=== PATIENT | female | born 1990 | race Caucasian/White ===

== ENCOUNTER 2016-09-16 04:40 | Emergency (ER) | payer OTHER ==
[2016-09-16] MEDS ORDERED: diphenhydrAMINE INJ 50MG/ML VIAL (J1200) As Ordered ONE (05:53)
[2016-09-16] MEDS ORDERED: METOCLOPRAMIDE INJ 10MG/2ML VIAL (J2765) As Ordered ONE (05:53)
[2016-09-16] MEDS ORDERED: KETOROLAC 30 MG/ML VIAL (J1885) As Ordered ONE (05:54)
--- NOTE | 2016-09-16 06:57 | EDDOCDS ---
Nurse's Notes [facility] Name: Kate Snyder Age: 26 yrs Sex: Female : 1990 Arrival Date: 09/16/2016 Time: 04:40 Bed 11 Private MD: Diagnosis: Migraine without aura, not intractable Presentation: 09/16 04:58 Presenting complaint: Patient states: she has a migraine that started about 3 hours ago cz nausea and vomiting headache like her usual migraines. Adult Sepsis Screening: The patient does not have new or worsening altered mentation. Patient's respiratory rate is less than 22. Systolic blood pressure is greater than 100. Patient has a qSOFA score of 0- Negative Sepsis Screen. Suicide/Homicide risk assessment- the patient denies having any suicidal and/or homicidal ideations and does not present with any other emotional, behavioral or mental health complaints. Status: Patient is not a associate director career services or dependent. Transition of care: patient was not received from another setting of care. 04:58 Acuity: JERED Level 3 cz 04:58 Method Of Arrival: Walkin/Carried/Asstd cz Triage Assessment: 05:03 General: Appears uncomfortable. Pain: Location: face Pain currently is 8 out of 10 on a cz pain scale. HIV screening NA for this visit Offered previously. 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 none - PMHx: Migraine Headaches; - PSHx: none; - Social history: Smoking status: Patient uses tobacco products, light tobacco smoker. No barriers to communication noted, The patient speaks fluent Estonian, Speaks appropriately for age. - Family history: Not pertinent. - : The pt / caregiver states he / she is not on anticoagulants. Home medication list is obtained from the patient. - Exposure Risk Screening:: None identified. Screenin:19 Screening information is obtained from the patient. Fall risk: No risks identified. mlc Assistance ADL's: requires no assistance with activities of daily living. Abuse/DV Screen: The patient / caregiver reports he/she is: not in a situation that causes fear, pain or injury. Nutritional screening: No deficits noted. Advance Directives: Currently, there is no health care proxy. There is no Power of Communications Systems Engineer. home support is adequate. Assessment: 05:19 General: Appears in no apparent distress, comfortable, Behavior is appropriate for age, mlc cooperative. Pain: Location: left frontal area, left side of the back of head, left side of forehead, left temporal area, left occipital area, left muslim and left base of the skull Pain currently is 8 out of 10 on a pain scale. Neurological: Level of Consciousness is awake, alert, obeys commands, Oriented to person, place, time, Denies blurred vision Reports headache photophobia. Respiratory: Airway is patent Respiratory effort is even, unlabored, Respiratory pattern is regular. GI: Abdomen is non- distended Reports nausea. Derm: Skin is normal. 06:08 Reassessment: Patient appears in no apparent distress at this time. Patient states mlc symptoms have not improved. pt medicated per order. 06:32 Reassessment: Patient appears in no apparent distress at this time. Patient states mlc feeling better. Patient states symptoms have improved. pain decreased to 3/10. resp easy/unlabored. . 06:54 General: Appears in no apparent distress, comfortable, Behavior is cooperative. Pain: mlc Pain currently is 3 out of 10 on a pain scale. Neurological: Level of Consciousness is awake, alert, Oriented to person, place, time. Respiratory: Airway is patent Respiratory effort is even, unlabored, Respiratory pattern is regular. Derm: Skin is normal. Vital Signs: 05:03 BP 130 / 67; Pulse 87; Resp 16; Temp 97.5(T); Pulse Ox 97% on R/A; Weight 72.57 kg; cz Height 5 ft. 2 in. (157.48 cm); 06:54 BP 119 / 56; Pulse 86; Resp 18; Temp 98.1; Pulse Ox 98% ; Pain 3/10; mlc 05:03 Body Mass Index 29.26 (72.57 kg, 157.48 cm) Vitals: 05:03 Log In Time: September 16, 2016 at 04:42. ED Course: 04:41 Patient visited by Jane Miller, Reg. hs2 04:41 Patient moved to [facility] hs2 05:02 Triage Initiated 05:05 Ila BeattyRN is Primary Nurse. 05:05 Patient moved to [facility] 05:19 Patient name changed from Kate\S\Patrick\S\Claudio\S\ to Kate\S\Kelly\S\Claudio. EDMS 05:21 Patient visited by Ila Beatty RN. mlc 05:21 [facility] Payment Agreement was scanned into [employer] and attached to record. [facility] 05:39 Adalberto Chang DO is Attending Physician. mm11 05:39 Patient visited by Adalberto Chang DO. mm11 05:46 Patient visited by Adalberto Chang DO. mm11 06:03 Inserted saline lock: 20 gauge in left forearm The patient tolerated the procedure well.rw1 06:08 Patient visited by Ila Beatty RN. mlc 06:32 Patient visited by Ila Beatty RN. mlc 06:54 The patient / caregiver is instructed regarding the plan of care and ED course. mlc 06:54 Discontinued IV lock intact, bleeding controlled, pressure dressing applied, No mlc redness/swelling at site. No procedures done that require assistance. Administered Medications: 06:07 Drug: diphenhydrAMINE 25 mg [diphenhydramine 50 mg/mL injection solution (0.5 mL)] mlc Route: IVP; Site: left antecubital; 06:31 Follow up: Response: No Adverse Reaction mlc 06:07 Drug: NS 0.9% 1000 ml [sodium chloride 0.9 % intravenous solution] Route: IV; Rate: mlc bolus; Site: left antecubital; 06:08 Drug: ketorolac 30 mg [ketorolac 30 mg/mL (1 mL) injection solution (1 mL)] Route: IVP; mlc Site: left antecubital; 06:31 Follow up: Response: Pain is decreased mlc 06:08 Drug: Metoclopramide 10 mg [metoclopramide 5 mg/mL injection solution] Route: IV; Rate: mlc 40 mg/hr; Infused Over: 15 mins; Site: left antecubital; 06:32 Follow up: Response: No Adverse Reaction; Pain is decreased; IV Status: Completed mlc infusion Order Results: There are currently no results for this order. Outcome: 06:46 Discharge ordered by Provider. mm11 06:54 Discharge Assessment: Patient awake, alert and oriented x 3. No cognitive and/or mlc functional deficits noted. Patient verbalized understanding of disposition instructions. patient administered narcotics - no. The following High Risk Discharge criteria are identified: None. Discharged to home ambulatory, with family. Condition: good Condition: stable. Discharge instructions given to patient, Instructed on discharge instructions, follow up and referral plans. Demonstrated understanding of instructions, Pt was receptive of discharge instructions/ teaching. No special radiology studies were completed. Property sent home with patient. 06:56 Patient left the ED. [facility] Signatures: Dispatcher [employer] EDAngel Jacobs RN RN cz Workman, Robert, LPN LPN rw1 Adalberto Chang, DO mm11 Ila Beatty RN RN mlc Hook, Sandra slh Stanton, Hillary, Reg Reg hs2 PATRICK
--- NOTE | 2016-09-16 06:57 | EDDOCDS ---
Physician Documentation [facility] Name: Kate Snyder Age: 26 yrs Sex: Female : 1990 Arrival Date: 09/16/2016 Time: 04:40 Bed 11 Private MD: Disposition: 09/16/16 06:46 Discharged to Home/Self Care. Impression: Migraine without aura, not intractable. - Condition is Stable. - Discharge Instructions: Migraine Headache. - Medication Reconciliation, Local Pharmacy Hours form. - Follow up: Private Physician; When: As needed; Reason: Continuance of care. - Problem is an acute exacerbation. - Symptoms have improved. Historical: - Allergies: Topamax; - Home Meds: 1. none - PMHx: Migraine Headaches; - PSHx: none; - Social history: Smoking status: Patient uses tobacco products, light tobacco smoker. No barriers to communication noted, The patient speaks fluent Uzbek, Speaks appropriately for age. - Family history: Not pertinent. - : The pt / caregiver states he / she is not on anticoagulants. Home medication list is obtained from the patient. - Exposure Risk Screening:: None identified. 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 2 in. (157.48 cm); 06:54 BP 119 / 56; Pulse 86; Resp 18; Temp 98.1; Pulse Ox 98% ; Pain 3/10; mlc 05:03 Body Mass Index 29.26 (72.57 kg, 157.48 cm) cz MDM: 05:21 [facility] Payment Agreement was scanned into [employer] and attached to record. [facility] [address] 05:47 IV Saline Lock ordered. mm11 05:47 ketorolac 30 mg IVP once ordered. mm11 05:47 Metoclopramide 10 mg IV at 40 mg/hr once over 15 mins ordered. mm11 05:47 diphenhydrAMINE 25 mg IVP once ordered. mm11 05:47 NS 0.9% 1000 ml IV at bolus once ordered. mm11 06:03 Financial registration complete. hs2 Administered Medications: 06:07 Drug: diphenhydrAMINE 25 mg [diphenhydramine 50 mg/mL injection solution (0.5 mL)] mlc Route: IVP; Site: left antecubital; 06:31 Follow up: Response: No Adverse Reaction [facility] 06:07 Drug: NS 0.9% 1000 ml [sodium chloride 0.9 % intravenous solution] Route: IV; Rate: mlc bolus; Site: left antecubital; 06:08 Drug: ketorolac 30 mg [ketorolac 30 mg/mL (1 mL) injection solution (1 mL)] Route: IVP; mlc Site: left antecubital; 06:31 Follow up: Response: Pain is decreased mlc 06:08 Drug: Metoclopramide 10 mg [metoclopramide 5 mg/mL injection solution] Route: IV; Rate: mlc 40 mg/hr; Infused Over: 15 mins; Site: left antecubital; 06:32 Follow up: Response: No Adverse Reaction; Pain is decreased; IV Status: Completed mlc infusion Signatures: Angel Christianson RN RN cz Maynard, Matthew, DO DO mm11 Ila Beatty RN RN mlc Hook, Sandra [facility] [address] Jane Miller, Reg Reg hs2 The chart was reviewed and I authenticate all verbal orders and agree with the evaluation and treatment provided.Attachments: 05:21 [facility] Payment Agreement [facility] [address] MTDD
--- NOTE | 2016-09-18 07:56 | EDDOCDS ---
Physician Documentation [facility] Name: Kate Snyder Age: 26 yrs Sex: Female : 1990 Arrival Date: 09/16/2016 Time: 04:40 Bed 11 Private MD: Disposition: 09/16/16 06:46 Discharged to Home/Self Care. Impression: Migraine without aura, not intractable. - Condition is Stable. - Discharge Instructions: Migraine Headache. - Medication Reconciliation, Local Pharmacy Hours form. - Follow up: Private Physician; When: As needed; Reason: Continuance of care. - Problem is an acute exacerbation. - Symptoms have improved. Historical: - Allergies: Topamax; - Home Meds: 1. none - PMHx: Migraine Headaches; - PSHx: none; - Social history: Smoking status: Patient uses tobacco products, light tobacco smoker. No barriers to communication noted, The patient speaks fluent Hebrew, Speaks appropriately for age. - Family history: Not pertinent. - : The pt / caregiver states he / she is not on anticoagulants. Home medication list is obtained from the patient. - Exposure Risk Screening:: None identified. 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 2 in. (157.48 cm); 06:54 BP 119 / 56; Pulse 86; Resp 18; Temp 98.1; Pulse Ox 98% ; Pain 3/10; mlc 05:03 Body Mass Index 29.26 (72.57 kg, 157.48 cm) cz MDM: 05:21 [facility] Payment Agreement was scanned into [employer] and attached to record. h 05:47 IV Saline Lock ordered. mm11 05:47 ketorolac 30 mg IVP once ordered. mm11 05:47 Metoclopramide 10 mg IV at 40 mg/hr once over 15 mins ordered. mm11 05:47 diphenhydrAMINE 25 mg IVP once ordered. mm11 05:47 NS 0.9% 1000 ml IV at bolus once ordered. mm11 06:03 Financial registration complete. hs2 11:50 T-Sheet-- Draft Copy was scanned into [employer] and attached to record. gb Administered Medications: 06:07 Drug: diphenhydrAMINE 25 mg [diphenhydramine 50 mg/mL injection solution (0.5 mL)] [facility] Route: IVP; Site: left antecubital; 06:31 Follow up: Response: No Adverse Reaction [facility] 06:07 Drug: NS 0.9% 1000 ml [sodium chloride 0.9 % intravenous solution] Route: IV; Rate: mlc bolus; Site: left antecubital; 06:08 Drug: ketorolac 30 mg [ketorolac 30 mg/mL (1 mL) injection solution (1 mL)] Route: IVP; mlc Site: left antecubital; 06:31 Follow up: Response: Pain is decreased [facility] 06:08 Drug: Metoclopramide 10 mg [metoclopramide 5 mg/mL injection solution] Route: IV; Rate: mlc 40 mg/hr; Infused Over: 15 mins; Site: left antecubital; 06:32 Follow up: Response: No Adverse Reaction; Pain is decreased; IV Status: Completed [facility] infusion Signatures: Angel Christianson, RN KALEY Orly Wilkerson, Reg Reg gb Adalberto Chang, DO DO mm11 Ila Beatty RN RN [facility] Lorena Rocha [facility] Jane Miller, Reg Reg hs2 The chart was reviewed and I authenticate all verbal orders and agree with the evaluation and treatment provided.Attachments: 05:21 [facility] Payment Agreement [facility] 11:50 T-Sheet-- Draft Copy Chart Complete MTDD
--- NOTE | 2016-09-18 07:56 | EDDOCDS ---
Physician Documentation [facility] Name: Kate Snyder Age: 26 yrs Sex: Female : 1990 Arrival Date: 09/16/2016 Time: 04:40 Bed 11 Private MD: Disposition: 09/16/16 06:46 Discharged to Home/Self Care. Impression: Migraine without aura, not intractable. - Condition is Stable. - Discharge Instructions: Migraine Headache. - Medication Reconciliation, Local Pharmacy Hours form. - Follow up: Private Physician; When: As needed; Reason: Continuance of care. - Problem is an acute exacerbation. - Symptoms have improved. Historical: - Allergies: Topamax; - Home Meds: 1. none - PMHx: Migraine Headaches; - PSHx: none; - Social history: Smoking status: Patient uses tobacco products, light tobacco smoker. No barriers to communication noted, The patient speaks fluent Korean, Speaks appropriately for age. - Family history: Not pertinent. - : The pt / caregiver states he / she is not on anticoagulants. Home medication list is obtained from the patient. - Exposure Risk Screening:: None identified. 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 2 in. (157.48 cm); 06:54 BP 119 / 56; Pulse 86; Resp 18; Temp 98.1; Pulse Ox 98% ; Pain 3/10; mlc 05:03 Body Mass Index 29.26 (72.57 kg, 157.48 cm) cz MDM: 05:21 [facility] Payment Agreement was scanned into [employer] and attached to record. h 05:47 IV Saline Lock ordered. mm11 05:47 ketorolac 30 mg IVP once ordered. mm11 05:47 Metoclopramide 10 mg IV at 40 mg/hr once over 15 mins ordered. mm11 05:47 diphenhydrAMINE 25 mg IVP once ordered. mm11 05:47 NS 0.9% 1000 ml IV at bolus once ordered. mm11 06:03 Financial registration complete. hs2 11:50 T-Sheet-- Draft Copy was scanned into [employer] and attached to record. gb Administered Medications: 06:07 Drug: diphenhydrAMINE 25 mg [diphenhydramine 50 mg/mL injection solution (0.5 mL)] [facility] Route: IVP; Site: left antecubital; 06:31 Follow up: Response: No Adverse Reaction [facility] 06:07 Drug: NS 0.9% 1000 ml [sodium chloride 0.9 % intravenous solution] Route: IV; Rate: mlc bolus; Site: left antecubital; 06:08 Drug: ketorolac 30 mg [ketorolac 30 mg/mL (1 mL) injection solution (1 mL)] Route: IVP; mlc Site: left antecubital; 06:31 Follow up: Response: Pain is decreased [facility] 06:08 Drug: Metoclopramide 10 mg [metoclopramide 5 mg/mL injection solution] Route: IV; Rate: mlc 40 mg/hr; Infused Over: 15 mins; Site: left antecubital; 06:32 Follow up: Response: No Adverse Reaction; Pain is decreased; IV Status: Completed [facility] infusion Signatures: Angel Christianson, RN KALEY Orly Wilkerson, Reg Reg gb Adalberto Chang, DO DO mm11 Ila Beatty RN RN [facility] Lorena Rocha [facility] Jane Miller, Reg Reg hs2 The chart was reviewed and I authenticate all verbal orders and agree with the evaluation and treatment provided.Attachments: 05:21 [facility] Payment Agreement [facility] 11:50 T-Sheet-- Draft Copy Chart Complete MTDD
--- NOTE | 2016-09-18 07:56 | EDDOCDS ---
Nurse's Notes [facility] Name: Kate Snyder Age: 26 yrs Sex: Female : 1990 Arrival Date: 09/16/2016 Time: 04:40 Bed 11 Private MD: Diagnosis: Migraine without aura, not intractable Presentation: 09/16 04:58 Presenting complaint: Patient states: she has a migraine that started about 3 hours ago cz nausea and vomiting headache like her usual migraines. Adult Sepsis Screening: The patient does not have new or worsening altered mentation. Patient's respiratory rate is less than 22. Systolic blood pressure is greater than 100. Patient has a qSOFA score of 0- Negative Sepsis Screen. Suicide/Homicide risk assessment- the patient denies having any suicidal and/or homicidal ideations and does not present with any other emotional, behavioral or mental health complaints. Status: Patient is not a relocation services specialist or dependent. Transition of care: patient was not received from another setting of care. 04:58 Acuity: JERED Level 3 cz 04:58 Method Of Arrival: Walkin/Carried/Asstd cz Triage Assessment: 05:03 General: Appears uncomfortable. Pain: Location: face Pain currently is 8 out of 10 on a cz pain scale. HIV screening NA for this visit Offered previously. 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 none - PMHx: Migraine Headaches; - PSHx: none; - Social history: Smoking status: Patient uses tobacco products, light tobacco smoker. No barriers to communication noted, The patient speaks fluent Cuban, Speaks appropriately for age. - Family history: Not pertinent. - : The pt / caregiver states he / she is not on anticoagulants. Home medication list is obtained from the patient. - Exposure Risk Screening:: None identified. Screenin:19 Screening information is obtained from the patient. Fall risk: No risks identified. mlc Assistance ADL's: requires no assistance with activities of daily living. Abuse/DV Screen: The patient / caregiver reports he/she is: not in a situation that causes fear, pain or injury. Nutritional screening: No deficits noted. Advance Directives: Currently, there is no health care proxy. There is no Power of Marketing Regional Consultant. home support is adequate. Assessment: 05:19 General: Appears in no apparent distress, comfortable, Behavior is appropriate for age, mlc cooperative. Pain: Location: left frontal area, left side of the back of head, left side of forehead, left temporal area, left occipital area, left zoroastrian and left base of the skull Pain currently is 8 out of 10 on a pain scale. Neurological: Level of Consciousness is awake, alert, obeys commands, Oriented to person, place, time, Denies blurred vision Reports headache photophobia. Respiratory: Airway is patent Respiratory effort is even, unlabored, Respiratory pattern is regular. GI: Abdomen is non- distended Reports nausea. Derm: Skin is normal. 06:08 Reassessment: Patient appears in no apparent distress at this time. Patient states mlc symptoms have not improved. pt medicated per order. 06:32 Reassessment: Patient appears in no apparent distress at this time. Patient states mlc feeling better. Patient states symptoms have improved. pain decreased to 3/10. resp easy/unlabored. . 06:54 General: Appears in no apparent distress, comfortable, Behavior is cooperative. Pain: mlc Pain currently is 3 out of 10 on a pain scale. Neurological: Level of Consciousness is awake, alert, Oriented to person, place, time. Respiratory: Airway is patent Respiratory effort is even, unlabored, Respiratory pattern is regular. Derm: Skin is normal. Vital Signs: 05:03 BP 130 / 67; Pulse 87; Resp 16; Temp 97.5(T); Pulse Ox 97% on R/A; Weight 72.57 kg; cz Height 5 ft. 2 in. (157.48 cm); 06:54 BP 119 / 56; Pulse 86; Resp 18; Temp 98.1; Pulse Ox 98% ; Pain 3/10; mlc 05:03 Body Mass Index 29.26 (72.57 kg, 157.48 cm) Vitals: 05:03 Log In Time: September 16, 2016 at 04:42. ED Course: 04:41 Patient visited by Jane Miller, Reg. hs2 04:41 Patient moved to [facility] hs2 05:02 Triage Initiated 05:05 Ila BeattyRN is Primary Nurse. 05:05 Patient moved to [facility] 05:19 Patient name changed from Kate\S\Patrick\S\Claudio\S\ to Kate\S\Kelly\S\Claudio. EDMS 05:21 Patient visited by Ila Beatty RN. mlc 05:21 [facility] Payment Agreement was scanned into [employer] and attached to record. [facility] 05:39 Adalberto Chang DO is Attending Physician. mm11 05:39 Patient visited by Adalberto Chang DO. mm11 05:46 Patient visited by Adalberto Chang DO. mm11 06:03 Inserted saline lock: 20 gauge in left forearm The patient tolerated the procedure well.rw1 06:08 Patient visited by Ila Beatty RN. mlc 06:32 Patient visited by Ila Beatty RN. mlc 06:54 The patient / caregiver is instructed regarding the plan of care and ED course. mlc 06:54 Discontinued IV lock intact, bleeding controlled, pressure dressing applied, No mlc redness/swelling at site. No procedures done that require assistance. 11:50 T-Sheet-- Draft Copy was scanned into [employer] and attached to record. gb Administered Medications: 06:07 Drug: diphenhydrAMINE 25 mg [diphenhydramine 50 mg/mL injection solution (0.5 mL)] mlc Route: IVP; Site: left antecubital; 06:31 Follow up: Response: No Adverse Reaction [facility] 06:07 Drug: NS 0.9% 1000 ml [sodium chloride 0.9 % intravenous solution] Route: IV; Rate: mlc bolus; Site: left antecubital; 06:08 Drug: ketorolac 30 mg [ketorolac 30 mg/mL (1 mL) injection solution (1 mL)] Route: IVP; mlc Site: left antecubital; 06:31 Follow up: Response: Pain is decreased mlc 06:08 Drug: Metoclopramide 10 mg [metoclopramide 5 mg/mL injection solution] Route: IV; Rate: mlc 40 mg/hr; Infused Over: 15 mins; Site: left antecubital; 06:32 Follow up: Response: No Adverse Reaction; Pain is decreased; IV Status: Completed mlc infusion Order Results: There are currently no results for this order. Outcome: 06:46 Discharge ordered by Provider. mm11 06:54 Discharge Assessment: Patient awake, alert and oriented x 3. No cognitive and/or mlc functional deficits noted. Patient verbalized understanding of disposition instructions. patient administered narcotics - no. The following High Risk Discharge criteria are identified: None. Discharged to home ambulatory, with family. Condition: good Condition: stable. Discharge instructions given to patient, Instructed on discharge instructions, follow up and referral plans. Demonstrated understanding of instructions, Pt was receptive of discharge instructions/ teaching. No special radiology studies were completed. Property sent home with patient. 06:56 Patient left the ED. [facility] Signatures: Dispatcher [employer] EDAngel Jacobs, KALEY RN Orly Wilkerson, Reg Reg gb Vic Colon LPN PIPELINES SUPERINTENDENT rw1 Adalberto Chang, DO mm11 Ila Beatty RN RN [facility] Lorena Rocha Hillary, Reg Reg hs2 Chart [address] [facility] [facility]
== END 2016-09-16 06:56 | disposition home or self-care (01) ==
LOC: M ED 04:40
DX: G43.909 Migraine, unspecified, not intractable, without status migrainosus (principal); Z88.8 Allergy status to other drugs, medicaments and biological substances; F17.210 Nicotine dependence, cigarettes, uncomplicated
CPT/HCPCS: 96365; 96375; 99283; J1200; J1885; J2765

== ENCOUNTER 2017-04-10 17:50 | Emergency (ER) | payer OTHER ==
[~2017-04-10] VITALS: Ht 157.5 cm; Wt 89.7 kg
[2017-04-10] MEDS ORDERED: diphenhydrAMINE INJ 50MG/ML VIAL (J1200) IV ONE (18:45)
[2017-04-10] MEDS ORDERED: KETOROLAC 30 MG/ML VIAL (J1885) IV ONE (18:45)
[2017-04-10] MEDS ORDERED: METOCLOPRAMIDE INJ 10MG/2ML VIAL (J2765) IV ONE (18:45)
--- NOTE | 2017-04-10 18:58 | REP ---
Clinical: Migraine headaches . Comparison: None. Findings: The ventricles, sulci, and cisterns are normal in position and appearance. Piña-white differentiation is maintained. No acute intracranial hemorrhage, mass/mass effect, pathology or trauma/injury. No evidence for acute infarction. No extra-axial fluid collection. Calvarium is intact. Paranasal sinuses and mastoid air cells are clear. Impression: Normal noncontrast head CT. No evidence for acute intracranial pathology or trauma/injury. Signed by Ilia Matson MD 04/10/2017 06:49 P
[2017-04-10 19:37] VITALS: BP 133/76
== END 2017-04-10 19:42 | disposition home or self-care (01) ==
LOC: M ED 17:50
DX: G43.909 Migraine, unspecified, not intractable, without status migrainosus (principal); Z72.0 Tobacco use
CPT/HCPCS: 70450; 96374; 96375; 99283; J1200; J1885; J2765

== ENCOUNTER 2017-09-05 17:37 | Emergency (ER) | payer OTHER | END 2017-09-05 21:31 | disposition left against medical advice (07) | LOC: M ED 21:31 | DX: Z53.29 Procedure and treatment not carried out because of patient's decision for other reasons (principal) ==

== ENCOUNTER → 2018-03-22 | Outpatient (REF) | payer OTHER ==
[2018-03-22 21:37] LABS: APPEARANCE, URINE CLOUDY (CLEAR); BACTERIA, URINE AUTO NEGATIVE (NEGATIVE); BILIRUBIN, URINE AUTO NEGATIVE (NEGATIVE); BLOOD, URINE BLOOD 2+ (NEGATIVE); COLOR, URINE YELLOW (YELLOW); GLUCOSE, URINE (UA) AUTO NEGATIVE (NEGATIVE); KETONE, URINE AUTO NEGATIVE (NEGATIVE); LEUKOCYTE ESTERASE, URINE AUTO 3+ (NEGATIVE); MUCUS, URINE SMALL (NEGATIVE); NITRITE, URINE AUTO NEGATIVE (NEGATIVE); PROTEIN, URINE AUTO 2+ mg/dL (NEGATIVE); RBC, URINE AUTO 51 /HPF (0-3); SPECIFIC GRAVITY URINE AUTO 1.027 (1.002-1.035); SQUAMOUS EPITHELIAL CELL UR AU 8 /HPF (0-6); TRANSITIONAL EPITHELIAL AUTO <1 /HPF; UROBILINOGEN, URINE AUTO 0.2 mg/dL (0.0-2.0); WBC, URINE AUTO TNTC /HPF (0-3)
== END ==
LOC: M LAB REF 09:50
DX: N39.0 Urinary tract infection, site not specified (principal)

== ENCOUNTER 2019-01-26 15:04 | Emergency (ER) | payer OTHER ==
[~2019-01-26] VITALS: Ht 157.5 cm; Wt 65.5 kg
[~2019-01-26 15:04] MED LIST: IBUP-1114 PO
[2019-01-26 16:26] LABS: HCG, SERUM QUALITATIVE NEGATIVE (NEGATIVE)
[2019-01-26] MEDS ORDERED: ACETAMINOPHEN 325 MG TAB PO ONE (17:00)
[2019-01-26] MEDS ORDERED: AZITHROMYCIN 250 MG TAB PO ONE (17:00)
[2019-01-26] MEDS ORDERED: LIDOCAINE 1% SDV 5 ML VIAL DILUENT ONE (17:00)
[2019-01-26] MEDS ORDERED: cefTRIAXone SOD 250 MG VIAL (J0696) IM ONE (17:00)
[2019-01-26 17:10] VITALS: BP 118/70
[2019-01-26 17:44] LABS: CHLAMYDIA DNA AMPLIFICATION NEGATIVE (NEGATIVE); GC DNA AMPLIFICATION NEGATIVE (NEGATIVE)
== END 2019-01-26 17:16 | disposition home or self-care (01) ==
LOC: M ED 15:04
DX: N72 Inflammatory disease of cervix uteri (principal); Z97.5 Presence of (intrauterine) contraceptive device; Z88.8 Allergy status to other drugs, medicaments and biological substances; F17.210 Nicotine dependence, cigarettes, uncomplicated
CPT/HCPCS: 81001; 84703; 87086; 87661; 96372; 99283; J0696

== ENCOUNTER 2021-04-20 17:08 | Emergency (ER) | payer OTHER ==
[2021-04-20 18:30] LABS: BASO # 0.1 10^3/uL (0.0-0.2); BASO % 0.5 % (0.0-1.0); EOS # 0.2 10^3/uL (0.0-0.5); EOS % 1.5 % (0.0-3.0); HEMATOCRIT 39.8 % (36.0-47.0); HEMOGLOBIN 13.8 g/dl (12.0-15.5); LYMPH % 14.3 % (24.0-44.0); MEAN CORPUSCULAR HEMOGLOBIN 30.9 pg (27.0-33.0); MEAN CORPUSCULAR HGB CONC 34.7 g/dl (32.0-36.5); MEAN CORPUSCULAR VOLUME 89.2 fl (80.0-96.0); MONO # 0.8 10^3/uL (0.0-0.8); MONO % 6.1 % (2.0-8.0); NEUTROPHILS # 10.6 10^3/uL (1.5-8.5); NEUTROPHILS % 77.3 % (36.0-66.0); PLATELET COUNT, AUTOMATED 229 10^3/uL (150-450); RED BLOOD COUNT 4.46 10^6/uL (4.00-5.40); WHITE BLOOD COUNT 13.7 10^3/uL (4.0-10.0)
[2021-04-20 19:06] LABS: BLOOD UREA NITROGEN 7 MG/DL (7-18); CALCIUM LEVEL 9.1 MG/DL (8.5-10.1); CARBON DIOXIDE LEVEL 26 MEQ/L (21-32); CHLORIDE LEVEL 106 MEQ/L (98-107); CREATININE FOR GFR 0.87 MG/DL (0.55-1.30); FREE T4 0.98 NG/DL (0.76-1.46); GLOMERULAR FILTRATION RATE > 60.0 (>60); GLUCOSE, FASTING 102 MG/DL (70-100); POTASSIUM SERUM 4.2 MEQ/L (3.5-5.1); SODIUM LEVEL 138 MEQ/L (136-145)
[2021-04-20] MEDS ORDERED: NS 1,000 ML IV ONE (19:30)
--- NOTE | 2021-04-20 19:55 | REPVR ---
PROCEDURE INFORMATION: Exam: CT Head Without Contrast Exam date and time: 04/20/2021 6:57 PM Age: 30 years old Clinical indication: Syncope and collapse TECHNIQUE: Imaging protocol: Computed tomography of the head without contrast. Axial and coronal reformatted images were created and reviewed. Radiation optimization: All CT scans at this facility use at least one of these dose optimization techniques: automated exposure control; mA and/or kV adjustment per patient size (includes targeted exams where dose is matched to clinical indication); or iterative reconstruction. COMPARISON: CT Head without contrast 04/10/2017 6:42 PM FINDINGS: Brain: No CT evidence of acute intracranial hemorrhage or acute territorial infarction. No significant mass effect or midline shift. Basal cisterns patent. Cerebral ventricles: Normal in size and configuration. Paranasal sinuses: Unremarkable. No fluid levels. Mastoid air cells: Grossly unremarkable. Bones/joints: No acute osseous abnormality. Soft tissues: Grossly unremarkable. IMPRESSION: No CT evidence of acute intracranial pathology. Electronically signed by: Jorge Maciel On 04/20/2021 19:54:54 PM
[2021-04-20 20:00] VITALS: BP 110/54
--- NOTE | 2021-04-22 | ECGEPIP ---
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
== END 2021-04-20 20:24 | disposition home or self-care (01) ==
LOC: M ED 17:08 → EDBD 17:08 → M ED 20:24
DX: R55 Syncope and collapse (principal); I45.19 Other right bundle-branch block; G43.909 Migraine, unspecified, not intractable, without status migrainosus; F17.200 Nicotine dependence, unspecified, uncomplicated; F12.10 Cannabis abuse, uncomplicated; Z88.8 Allergy status to other drugs, medicaments and biological substances

== ENCOUNTER 2021-04-23 08:09 | Emergency (ER) | payer OTHER ==
[~2021-04-23] VITALS: Ht 157.5 cm; Wt 65.8 kg
[2021-04-23 08:10] VITALS: BP 128/71
== END 2021-04-23 10:18 | disposition left against medical advice (07) ==
LOC: M ED 08:09
DX: Z53.21 Procedure and treatment not carried out due to patient leaving prior to being seen by health care provider (principal)

== ENCOUNTER → 2022-03-22 | Outpatient (CLI) | payer OTHER | LOC: M LABSMTC 10:05 | PROVIDERS: ATTEND Anesthesiology | DX: Z01.818 Encounter for other preprocedural examination (principal); Z11.52 Encounter for screening for COVID-19 ==

== ENCOUNTER 2022-03-27 06:13 | Day surgery (SDC) | payer OTHER ==
[~2022-03-27] VITALS: Ht 157.5 cm; Wt 71.7 kg
[~2022-03-27 06:13] MED LIST changes: +AMPICILLIN SOD/SULBACTAM SOD 3 GM in D5W MINI-BAG PLUS 100 ML IV ONE; +dexameTHASONE 4 MG/ML 1ML VIAL (J1100 PER 1MG) IV ONE
[2022-03-27] MEDS ORDERED: LR 1,000 ML IV SCH ×2 (06:55→08:45)
[2022-03-27] MEDS ORDERED: fentaNYL 250 MCG/5 ML INJECTION As Ordered ONE (07:00)
[2022-03-27] MEDS ORDERED: MIDAZOLAM INJ 2MG/2ML VIAL (J2250 PER 1MG) As Ordered ONE (07:01)
[2022-03-27] MEDS ORDERED: ONDANSETRON 4MG 2ML VIAL As Ordered ONE (07:02)
[2022-03-27] MEDS ORDERED: ROCURONIUM BROMIDE 50 MG/5 ML VIAL As Ordered ONE (07:02)
[2022-03-27] MEDS ORDERED: dexameTHASONE 4 MG/ML 1ML VIAL (J1100 PER 1MG) As Ordered ONE (07:02)
[2022-03-27] MEDS ORDERED: LIDOCAINE 2% INJ 100 MG/5 ML SYRINGE As Ordered ONE (07:02)
[2022-03-27] MEDS ORDERED: METOCLOPRAMIDE INJ 10MG/2ML VIAL (J2765 PER 1) As Ordered ONE (07:02)
[2022-03-27] MEDS ORDERED: propofoL 200 MG/20 ML VIAL As Ordered ONE (07:02)
[2022-03-27] MEDS ORDERED: ACETAMINOPHEN 1000MG 100ML IV BTL (OFIRMEV) (J0131 PER 10MG) As Ordered ONE (07:02)
[2022-03-27] MEDS ORDERED: OXYMETAZOLINE 0.05% NASAL SPRAY (AFRIN) As Ordered ONE (07:09)
[2022-03-27] MEDS ORDERED: MEPIVACAINE HCL 3 % 1.7 ML DENTAL CARTRIDGE (CARBOCAINE) (J0670) As Ordered ONE (07:10)
[2022-03-27] MEDS ORDERED: CHLORHEXIDINE GLUCONATE 0.12 % 15ML UDC (PERIDEX ORAL RINSE) As Ordered ONE (07:11)
[2022-03-27] MEDS ORDERED: LIDOCAINE 2% W/ EPINEPHRINE 1.7 ML DENTAL INJ As Ordered ONE ×2 (07:11→07:55)
[2022-03-27] MEDS ORDERED: LIDOCAINE 2% JELLY 5ML TUBE As Ordered ONE (07:12)
[2022-03-27] MEDS ORDERED: BUPIVACAINE LIPOSOME/PF 1.3% 20ML VIAL (13.3MG/ML)(EXPAREL) As Ordered ONE (07:55)
[2022-03-27] MEDS ORDERED: SUGAMMADEX SODIUM 500 MG/5 ML VIAL (BRIDION) As Ordered ONE (08:02)
[2022-03-27] MEDS ORDERED: ONDANSETRON 4MG 2ML VIAL IV PRN (08:45)
[2022-03-27] MEDS ORDERED: oxyCODONE 5MG TAB PO PRN (08:45)
[2022-03-27] MEDS ORDERED: fentaNYL 100 MCG/2 ML INJECTION IV PRN (08:45)
[2022-03-27 11:09] VITALS: BP 147/71
== END 2022-03-27 11:12 | disposition home or self-care (01) ==
LOC: M SDC 06:13
PROVIDERS: ATTEND Dentist
DX: K02.9 Dental caries, unspecified (principal); F17.210 Nicotine dependence, cigarettes, uncomplicated; Z88.8 Allergy status to other drugs, medicaments and biological substances
CPT/HCPCS: 81025; 88300; C9290; D7140; D7210; D9223; J0131; J0295; J1100; J2250; J2405; J2765; J3010

== ENCOUNTER 2022-04-09 20:45 | Emergency (ER) | payer OTHER ==
[~2022-04-09] VITALS: Ht 157.5 cm; Wt 68.2 kg
[~2022-04-09 20:45] MED LIST changes: -AMPICILLIN SOD/SULBACTAM SOD 3 GM in D5W MINI-BAG PLUS 100 ML IV ONE; -dexameTHASONE 4 MG/ML 1ML VIAL (J1100 PER 1MG) IV ONE
[2022-04-09 21:23] LABS: BASO # 0.1 10^3/uL (0.0-0.2); BASO % 0.4 % (0.0-1.0); EOS % 0.2 % (0.0-3.0); HEMATOCRIT 40.5 % (36.0-47.0); HEMOGLOBIN 13.8 g/dl (12.0-15.5); LYMPH # 0.3 10^3/uL (1.5-5.0); LYMPH % 2.5 % (24.0-44.0); MEAN CORPUSCULAR HEMOGLOBIN 30.9 pg (27.0-33.0); MEAN CORPUSCULAR HGB CONC 34.1 g/dl (32.0-36.5); MEAN CORPUSCULAR VOLUME 90.6 fl (80.0-96.0); MONO # 0.8 10^3/uL (0.0-0.8); MONO % 6.4 % (2.0-8.0); NEUTROPHILS % 89.8 % (36.0-66.0); PLATELET COUNT, AUTOMATED 216 10^3/uL (150-450); RED BLOOD COUNT 4.47 10^6/uL (4.00-5.40); WHITE BLOOD COUNT 12.2 10^3/uL (4.0-10.0)
[2022-04-09 22:07] LABS: ALBUMIN 4.2 GM/DL (3.2-5.2); ALT/SGPT 27 U/L (12-78); BILIRUBIN,DIRECT < 0.1 MG/DL (0.0-0.2); BILIRUBIN,TOTAL 0.3 MG/DL (0.2-1.0); LIPASE 69 U/L (73-393); TOTAL PROTEIN 7.7 GM/DL (6.4-8.2)
[2022-04-09] MEDS ORDERED: ONDANSETRON 4MG 2ML VIAL IV PRN (23:25)
[2022-04-09] MEDS ORDERED: NS 1,000 ML IV ONE (23:25)
[2022-04-09] MEDS ORDERED: ACETAMINOPHEN TAB 650MG DOSE (2X325MG) PO ONE (23:25)
[2022-04-09] MEDS ORDERED: KETOROLAC 30 MG/ML 1ML VIAL IV ONE (23:25)
[2022-04-10] MEDS ORDERED: KETO10TAB PO (00:29)
[2022-04-10] MEDS ORDERED: ONDA4TAB6 PO (00:29)
[2022-04-10 00:37] VITALS: BP 130/72
== END 2022-04-10 00:39 | disposition home or self-care (01) ==
LOC: M ED 20:45
DX: U07.1 COVID-19 (principal); G43.909 Migraine, unspecified, not intractable, without status migrainosus; F17.200 Nicotine dependence, unspecified, uncomplicated; Z88.8 Allergy status to other drugs, medicaments and biological substances
CPT/HCPCS: 80047; 80076; 83690; 84702; 85025; 87486; 87581; 87633; 87798; 96361; 96374; 99284; J1885

== ENCOUNTER 2022-08-27 15:51 | Emergency (ER) | payer OTHER ==
[~2022-08-27] VITALS: Ht 157.5 cm; Wt 70.0 kg
[~2022-08-27 15:51] MED LIST changes: +KETO10TAB PO; +ONDA4TAB6 PO
[2022-08-27] MEDS ORDERED: NS 1,000 ML IV ONE (16:45)
[2022-08-27] MEDS ORDERED: ONDANSETRON 4MG 2ML VIAL IV ONE (16:45)
[2022-08-27] MEDS ORDERED: KETOROLAC 30 MG/ML 1ML VIAL IV ONE (16:45)
[2022-08-27 17:09] LABS: BASO # 0.1 10^3/uL (0.0-0.2); BASO % 0.5 % (0.0-1.0); EOS # 0.1 10^3/uL (0.0-0.5); EOS % 0.6 % (0.0-3.0); HEMATOCRIT 43.6 % (36.0-47.0); HEMOGLOBIN 14.4 g/dl (12.0-15.5); LYMPH # 1.7 10^3/uL (1.5-5.0); LYMPH % 12.6 % (24.0-44.0); MEAN CORPUSCULAR HEMOGLOBIN 30.1 pg (27.0-33.0); MEAN CORPUSCULAR VOLUME 91.2 fl (80.0-96.0); MONO # 0.5 10^3/uL (0.0-0.8); MONO % 3.7 % (2.0-8.0); NEUTROPHILS # 11.2 10^3/uL (1.5-8.5); NEUTROPHILS % 82.2 % (36.0-66.0); PLATELET COUNT, AUTOMATED 259 10^3/uL (150-450); RED BLOOD COUNT 4.78 10^6/uL (4.00-5.40); WHITE BLOOD COUNT 13.7 10^3/uL (4.0-10.0)
[2022-08-27 17:24] LABS: INR 0.91; PROTHROMBIN TIME 12.5 SECONDS (12.5-14.5)
[2022-08-27 17:25] LABS: PARTIAL THROMBOPLASTIN TIME 31.4 SECONDS (24.8-34.2)
[2022-08-27 17:32] LABS: MAGNESIUM LEVEL 1.8 MG/DL (1.8-2.4)
[2022-08-27 17:35] LABS: FREE T4 0.93 NG/DL (0.89-1.76); THYROID STIMULATING HORMONE 1.621 uIU/ML (0.55-4.78)
[2022-08-27 17:50] LABS: D-DIMER QUANT < 270.0 ng/ml (<500)
[2022-08-27] MEDS ORDERED: SUMA50TA2 PO (18:30)
[2022-08-27] MEDS ORDERED: ONDA4TAB6 PO (18:32)
[2022-08-27 19:15] VITALS: BP 135/65
== END 2022-08-27 19:16 | disposition home or self-care (01) ==
LOC: M ED 15:51
DX: G43.119 Migraine with aura, intractable, without status migrainosus (principal); F17.200 Nicotine dependence, unspecified, uncomplicated; F12.10 Cannabis abuse, uncomplicated; Z88.8 Allergy status to other drugs, medicaments and biological substances; Z79.83 Long term (current) use of bisphosphonates; Z79.1 Long term (current) use of non-steroidal anti-inflammatories (NSAID); Z79.899 Other long term (current) drug therapy
CPT/HCPCS: 70450; 72125; 80047; 83735; 84439; 84443; 84702; 85025; 85379; 85610; 85730; 96361; 96374; 99284; J2405

== ENCOUNTER → 2024-03-20 | Outpatient (REF) | payer OTHER ==
[~2024-03-20] MED LIST changes: +ONDA-282 PO; -ONDA4TAB6 PO; +SUMA50TA2 PO
[2024-03-20 13:37] LABS: APPEARANCE, URINE CLOUDY (CLEAR); BACTERIA, URINE AUTO 1+ (NEGATIVE); BILIRUBIN, URINE AUTO NEGATIVE (NEGATIVE); BLOOD, URINE BLOOD 1+ (NEGATIVE); COLOR, URINE YELLOW (YELLOW); GLUCOSE, URINE (UA) AUTO NEGATIVE (NEGATIVE); KETONE, URINE AUTO NEGATIVE (NEGATIVE); LEUKOCYTE ESTERASE, URINE AUTO 3+ (NEGATIVE); MUCUS, URINE SMALL (NEGATIVE); NITRITE, URINE AUTO NEGATIVE (NEGATIVE); PROTEIN, URINE AUTO 2+ mg/dL (NEGATIVE); RBC, URINE AUTO 31 /HPF (0-3); SQUAMOUS EPITHELIAL CELL UR AU 19 /HPF (0-6); TRANSITIONAL EPITHELIAL AUTO 1 /HPF; UROBILINOGEN, URINE AUTO 0.2 mg/dL (0.0-2.0); WBC, URINE AUTO TNTC /HPF (0-3)
== END ==
LOC: M LAB REF 12:39
PROVIDERS: ATTEND Physician Assistant
DX: N39.0 Urinary tract infection, site not specified (principal)

== ENCOUNTER 2025-02-20 19:18 | Emergency (ER) | payer OTHER ==
[~2025-02-20] VITALS: Ht 157.5 cm; Wt 89.8 kg
[2025-02-20] MEDS: NS (Normal Saline) 0.9% 1,000 ML IV ONE (20:51)
[2025-02-20] MEDS: diphenhydrAMINE 50 MG/ML VIAL IV STA (20:51)
[2025-02-20 20:52] LABS: BASO # 0.0 10^3/uL (0.0-0.2); BASO % 0.3 % (0.0-1.0); EOS # 0.1 10^3/uL (0.0-0.5); EOS % 1.0 % (0.0-3.0); LYMPH # 1.7 10^3/uL (1.5-5.0); LYMPH % 14.2 % (24.0-44.0); MONO # 0.5 10^3/uL (0.0-0.8); MONO % 4.4 % (2.0-8.0); NEUTROPHILS # 9.6 10^3/uL (1.5-8.5); NEUTROPHILS % 79.7 % (36.0-66.0); PLATELET COUNT, AUTOMATED 283 10^3/uL (150-450)
[2025-02-20] MEDS: KETOROLAC 30 MG/ML 1 ML VIAL IV ONE (20:54)
[2025-02-20] MEDS ORDERED: ISOVUE-370 76% 100 ML VIAL As Ordered ONE (20:58)
[2025-02-20 21:42] LABS: CALCIUM LEVEL 9.0 MG/DL (8.5-10.1); CARBON DIOXIDE LEVEL 24 MMOL/L (20-31); CHLORIDE LEVEL 106 MMOL/L (98-107); CREATININE FOR GFR 0.82 MG/DL (0.55-1.30); GLOMERULAR FILTRATION RATE > 90.0 (>60); POTASSIUM SERUM 4.5 MMOL/L (3.5-5.1); SODIUM LEVEL 143 MMOL/L (136-145)
[2025-02-20 23:58] VITALS: BP 118/57; TEMP 97.8; O2SAT 98
== END 2025-02-21 00:07 | disposition home or self-care (01) ==
LOC: M ED 19:18
DX: G43.909 Migraine, unspecified, not intractable, without status migrainosus (principal); F17.200 Nicotine dependence, unspecified, uncomplicated; C53.9 Malignant neoplasm of cervix uteri, unspecified; Z79.1 Long term (current) use of non-steroidal anti-inflammatories (NSAID); Z79.899 Other long term (current) drug therapy
CPT/HCPCS: 70450; 70496; 70498; 80047; 80048; 85025; 93041; 94760; 96361; 96374; 96375; 99285; J1200; J1885; J2765; Q9967